=== PATIENT | female | born 1985 | race Caucasian/White ===

== ENCOUNTER 2020-07-01 18:59 | Emergency (ER) | payer OTHER ==
[~2020-07-01] VITALS: Ht 157.5 cm; Wt 59.0 kg
[2020-07-01 19:27] VITALS: BP_SYST 129
--- NOTE | 2020-07-01 19:37 | NUR ---
Patient left without being seen.
== END 2020-07-01 19:37 | disposition left against medical advice (07) ==
LOC: SED 18:59
DX: O21.8 Other vomiting complicating pregnancy (principal); Z53.21 Procedure and treatment not carried out due to patient leaving prior to being seen by health care provider; Z3A.01 Less than 8 weeks gestation of pregnancy